=== PATIENT | female | born 1945 | race Native Hawaiian/Other Pacific Islander ===

== ENCOUNTER 2019-04-21 19:05 | Emergency (ER) | payer OTHER ==
[~2019-04-21] VITALS: Ht 157.5 cm; Wt 67.6 kg
[2019-04-21 20:13] LABS: PLATELET COUNT 202 K/uL (152-353)
[2019-04-21 20:21] LABS: POTASSIUM 3.4 mmol/L (3.6-5.2)
[2019-04-21 20:38] VITALS: BP 149/91; TEMP 97
[2019-04-21] MEDS ORDERED: TYLENOL325 MG PO (21:13)
[2019-04-21] MEDS ORDERED: ARTIFICIA7 IO (21:14)
[2019-04-21] MEDS ORDERED: DOCU100C10 PO (21:14)
[2019-04-21] MEDS ORDERED: FLEET ENEMA RE (21:15)
[2019-04-21] MEDS ORDERED: GERI-LANTA PO (21:15)
[2019-04-21] MEDS ORDERED: EQ MUCUS ER600 MG PO (21:16)
[2019-04-21] MEDS ORDERED: IMODIUM A-1 MG/7.5 M PO (21:17)
[2019-04-21] MEDS ORDERED: ZESTRIL40 MG PO (21:18)
[2019-04-21] MEDS ORDERED: ANTI-DIARRHEAL2 MG PO (21:18)
[2019-04-21] MEDS ORDERED: MILK OF MA400 MG/5 M PO (21:19)
[2019-04-21] MEDS ORDERED: CLARITIN10 MG PO (21:19)
[2019-04-21] MEDS ORDERED: NAMENDA5 MG PO (21:20)
[2019-04-21] MEDS ORDERED: NITROSTAT0.4 MG SL (21:20)
[2019-04-21] MEDS ORDERED: CLOP75TA2 PO (21:21)
[2019-04-21] MEDS ORDERED: PROZAC10 MG PO (21:21)
[2019-04-21] MEDS ORDERED: TRAZODONE HYDR100 MG PO (21:21)
[2019-04-21] MEDS ORDERED: TRAM50TA PO (21:22)
[2019-04-21] MEDS ORDERED: OLAN2.5T2 PO (21:23)
== END 2019-04-21 20:30 | disposition other institution (70) ==
LOC: ED 19:05
PROVIDERS: Family Medicine
DX: F03.90 Unspecified dementia, unspecified severity, without behavioral disturbance, psychotic disturbance, mood disturbance, and anxiety (principal); F05 Delirium due to known physiological condition; F28 Other psychotic disorder not due to a substance or known physiological condition
CPT/HCPCS: 36415; 80053; 85027; 93005; 99285